=== PATIENT | male | born 1960 | race Caucasian/White ===

== ENCOUNTER 2018-10-03 23:45 | Emergency (ER) | payer OTHER ==
[~2018-10-03] VITALS: Ht 185.4 cm; Wt 90.7 kg
[~2018-10-03 23:45] MED LIST: BUDE10.22 INH; CYCL10 PO; FLUT110OIA INH; MIDO2.5 PO; Mucinex600 MG PO; NAPR500 PO; OXYACE5T PO; PRAZ2 PO; PREG200 PO; PREG300 PO; Prednisone20 MG PO; Ventolin/Prove6.7 GM INH; Zofran Odt8 MG SL
[2018-10-04 00:13] LABS: BASOPHILS ABSOLUTE AUTO 0.07 K/mm3 (0.00-0.23); BASOPHILS PERCENT AUTO 1 % (0-2); EOSINOPHILS ABSOLUTE AUTO 0.32 K/mm3 (0.00-0.68); EOSINOPHILS PERCENT AUTO 5 % (0-6); Hematocrit 41.3 % (37.0-53.0); Hemoglobin 13.4 g/dL (13.5-17.5); IMMATURE GRAN ABSOLUTE AUTO 0.01 K/mm3 (0.00-0.10); IMMATURE GRAN PERCENT AUTO 0 % (0-1); LYMPHOCYTES ABSOLUTE AUTO 2.07 K/mm3 (0.84-5.20); LYMPHOCYTES PERCENT AUTO 32 % (21-46); MONOCYTES ABSOLUTE AUTO 0.68 K/mm3 (0.16-1.47); MONOCYTES PERCENT AUTO 10 % (4-13); Mean Corpuscular HGB 30.3 pg (26.0-34.0); Mean Corpuscular HGB Conc 32.4 g/dL (31.5-36.5); Mean Corpuscular Volume 93 fL (80-100); Mean Platelet Volume 9.3 fL (9.1-12.4); NEUTROPHILS ABSOLUTE AUTO 3.41 K/mm3 (1.96-9.15); NEUTROPHILS PERCENT AUTO 52 % (41-73); Platelet Count 334 K/mm3 (150-400); RDW Coefficient Variation 14.3 % (11.7-14.2); RDW Standard Deviation 49.9 fL (35.1-46.3); Red Blood Cell Count 4.42 M/mm3 (4.30-5.90); White Blood Cell Count 6.56 K/mm3 (4.00-11.30)
[2018-10-04 00:36] LABS: International Normalized Ratio 1.05; Prothrombin Time Results 10.8 Sec (9.7-11.5)
[2018-10-04 00:41] LABS: Alanine Aminotransfer (ALT/SGP 50 U/L (12-78); Albumin, Blood 4.1 g/dL (3.4-5.0); Albumin/Globulin Ratio 1.2 (0.8-1.8); Alk Phos 94 U/L (50-136); Anion Gap 7 mmol/L (6-16); Aspartate Aminotrans (AST/SGOT 56 U/L (12-37); Bilirubin, Total 0.6 mg/dL (0.1-1.0); Blood Urea Nitrogen 19 mg/dL (8-24); Bun/Creatinine Ratio 19.3 (12.0-20.0); CO2, Blood 27 mmol/L (21-32); Calcium, Blood 8.5 mg/dL (8.5-10.1); Chloride, Blood 108 mmol/L (98-108); Creatinine, Blood 0.99 mg/dL (0.60-1.20); Ethanol (Alcohol), Blood, Med <3 mg/dL; Globulin, Blood 3.5 g/dL (2.2-4.0); Glomerular Filtration Rate >60 (60-); Glucose, Blood 101 mg/dL (70-99); Potassium, Blood 3.9 mmol/L (3.5-5.5); Sodium, Blood 142 mmol/L (136-145); Total Protein, Blood 7.6 g/dL (6.4-8.2)
[2018-10-04 02:11] LABS: U Amphetamine Screen DETECTED; U Methamphetamine Screen DETECTED
[2018-10-04 02:12] LABS: U Barbituate Screen Not Detected; U Benzodiazapine Screen Not Detected; U Buprenorphine Screen Not Detected; U Cannabinoids Screen DETECTED; U Cocaine Screen Not Detected; U Methadone Screen Not Detected; U Opiates Screen DETECTED; U Oxycodone Screen Not Detected; U Phencyclidine Screen Not Detected; U Propoxyphene Screen Not Detected
== END 2018-10-04 03:10 | disposition home or self-care (01) ==
LOC: ER 23:45
PROVIDERS: Emergency Medicine
DX: S50.812A Abrasion of left forearm, initial encounter (principal); M54.2 Cervicalgia; J44.9 Chronic obstructive pulmonary disease, unspecified; Z79.899 Other long term (current) drug therapy; Z96.652 Presence of left artificial knee joint; V89.2XXA Person injured in unspecified motor-vehicle accident, traffic, initial encounter
CPT/HCPCS: 70450; 71045; 71260; 72125; 72170; 74177; 80053; 83690; 85025; 85610; 85730; 86850; 86900; 86901; 96374; 96375; 96376; 99284-25; G0480; J1170; J2250; J2405; Q9967

== ENCOUNTER 2022-09-18 19:16 | Emergency (ER) | payer OTHER ==
[~2022-09-18] VITALS: Ht 182.9 cm; Wt 87.1 kg
[2022-09-18 21:47] LABS: BASOPHILS ABSOLUTE AUTO 0.03 K/mm3 (0.00-0.23); BASOPHILS PERCENT AUTO 1 % (0-2); EOSINOPHILS ABSOLUTE AUTO 0.12 K/mm3 (0.00-0.68); EOSINOPHILS PERCENT AUTO 2 % (0-6); Hematocrit 43.9 % (37.0-53.0); Hemoglobin 14.5 g/dL (13.5-17.5); IMMATURE GRAN ABSOLUTE AUTO 0.01 K/mm3 (0.00-0.10); IMMATURE GRAN PERCENT AUTO 0 % (0-1); LYMPHOCYTES ABSOLUTE AUTO 2.11 K/mm3 (0.84-5.20); LYMPHOCYTES PERCENT AUTO 41 % (21-46); MONOCYTES ABSOLUTE AUTO 0.34 K/mm3 (0.16-1.47); MONOCYTES PERCENT AUTO 7 % (4-13); Mean Corpuscular HGB 29.4 pg (26.0-34.0); Mean Corpuscular Volume 89 fL (80-100); Mean Platelet Volume 8.9 fL (9.1-12.4); NEUTROPHILS PERCENT AUTO 50 % (41-73); Platelet Count 403 K/mm3 (150-400); RDW Coefficient Variation 15.5 % (11.7-14.2); Red Blood Cell Count 4.93 M/mm3 (4.30-5.90); White Blood Cell Count 5.21 K/mm3 (4.00-11.30)
[2022-09-18 22:12] LABS: Albumin, Blood 3.9 g/dL (3.4-5.0); Albumin/Globulin Ratio 1.1 (0.8-1.8); Bilirubin, Total 0.2 mg/dL (0.1-1.0); Bun/Creatinine Ratio 12.7 (12.0-20.0); Calcium, Blood 8.3 mg/dL (8.5-10.1); Creatinine, Blood 0.86 mg/dL (0.60-1.20); Globulin, Blood 3.4 g/dL (2.2-4.0); Potassium, Blood 4.7 mmol/L (3.5-5.5); Thyroid Stimulating Hormone 0.408 uIU/mL (0.360-4.800); Total Protein, Blood 7.3 g/dL (6.4-8.2)
[2022-09-18] MEDS ORDERED: QUET25 PO (22:33)
== END 2022-09-18 23:06 | disposition home or self-care (01) ==
LOC: ER 19:16
PROVIDERS: Emergency Medicine
DX: F41.9 Anxiety disorder, unspecified (principal); G47.00 Insomnia, unspecified; J44.9 Chronic obstructive pulmonary disease, unspecified; F17.200 Nicotine dependence, unspecified, uncomplicated; Z79.899 Other long term (current) drug therapy
CPT/HCPCS: 36415; 80053; 84443; 85025; A9270

== ENCOUNTER 2024-12-22 08:01 | Emergency (ER) | payer OTHER ==
[~2024-12-22] VITALS: Ht 182.9 cm; Wt 86.6 kg
[~2024-12-22 08:01] MED LIST changes: +QUET25 PO
[2024-12-22] MEDS ORDERED: Ketorolac Tromethamine 15mg Vial IV ONE (09:20)
[2024-12-22] MEDS ORDERED: Diazepam 2 MG Tab PO ONE (09:20)
[2024-12-22] MEDS ORDERED: Lidocaine 4% 1 Patch TOP ONE (09:20)
[2024-12-22 11:00] VITALS: BP 153/84
[2024-12-22] MEDS ORDERED: KETO10 PO (12:11)
[2024-12-22] MEDS ORDERED: LIDOCAINE1 EAC1 TOP (12:11)
== END 2024-12-22 12:28 | disposition home or self-care (01) ==
LOC: ER 08:01
DX: M54.42 Lumbago with sciatica, left side (principal); J44.9 Chronic obstructive pulmonary disease, unspecified; Z87.891 Personal history of nicotine dependence; Z79.51 Long term (current) use of inhaled steroids; Z79.899 Other long term (current) drug therapy
CPT/HCPCS: 96374; 99283-25; A9270; J1885

== ENCOUNTER 2025-01-22 09:53 | Emergency (ER) | payer OTHER ==
[~2025-01-22] VITALS: Ht 182.9 cm; Wt 85.7 kg
[~2025-01-22 09:53] MED LIST changes: +KETO10 PO; +LIDOCAINE1 EAC1 TOP
[2025-01-22] MEDS ORDERED: HYDROmorphone HCl/Pf 1MG SYR IV ONE (10:20)
[2025-01-22] MEDS ORDERED: Ondansetron HCl 2 MG / ML 2ML Vial IV ONE (10:25)
[2025-01-22 10:48] LABS: BASOPHILS ABSOLUTE AUTO 0.09 K/mm3 (0.00-0.23); BASOPHILS PERCENT AUTO 1 % (0-2); EOSINOPHILS ABSOLUTE AUTO 0.35 K/mm3 (0.00-0.68); EOSINOPHILS PERCENT AUTO 5 % (0-6); Hemoglobin 12.8 g/dL (13.5-17.5); IMMATURE GRAN ABSOLUTE AUTO 0.02 K/mm3 (0.00-0.10); IMMATURE GRAN PERCENT AUTO 0 % (0-1); LYMPHOCYTES ABSOLUTE AUTO 1.12 K/mm3 (0.84-5.20); LYMPHOCYTES PERCENT AUTO 16 % (21-46); MONOCYTES ABSOLUTE AUTO 0.96 K/mm3 (0.16-1.47); MONOCYTES PERCENT AUTO 14 % (4-13); Mean Corpuscular HGB 26.4 pg (26.0-34.0); Mean Corpuscular HGB Conc 31.2 g/dL (31.5-36.5); Mean Corpuscular Volume 85 fL (80-100); Mean Platelet Volume 9.3 fL (9.1-12.4); NEUTROPHILS ABSOLUTE AUTO 4.33 K/mm3 (1.96-9.15); NEUTROPHILS PERCENT AUTO 63 % (41-73); Platelet Count 459 K/mm3 (150-400); RDW Coefficient Variation 16.2 % (11.7-14.2); RDW Standard Deviation 50.2 fL (35.1-46.3); Red Blood Cell Count 4.85 M/mm3 (4.30-5.90); White Blood Cell Count 6.87 K/mm3 (4.00-11.30)
[2025-01-22 11:18] LABS: Albumin, Blood 3.5 g/dL (3.4-5.0); Bilirubin, Total 0.3 mg/dL (0.1-1.0); Bun/Creatinine Ratio 10.5 (12.0-20.0); C-Reactive Protein, High Sens. 2.48 mg/L (0.000-3.000); Calcium, Blood 8.5 mg/dL (8.5-10.1); Creatinine, Blood 1.05 mg/dL (0.60-1.20); Globulin, Blood 3.4 g/dL (2.2-4.0); Potassium, Blood 4.7 mmol/L (3.5-5.5); Total Protein, Blood 6.9 g/dL (6.4-8.2)
[2025-01-22] MEDS ORDERED: DiphenhydrAMINE HCl 50 MG/ML 1ML Vial IV ONE (11:30)
[2025-01-22 11:37] VITALS: BP 169/88
== END 2025-01-22 12:32 ==
LOC: ER 09:53
PROVIDERS: Emergency Medicine
DX: M25.451 Effusion, right hip (principal); M25.551 Pain in right hip; G89.29 Other chronic pain; J44.9 Chronic obstructive pulmonary disease, unspecified; G62.9 Polyneuropathy, unspecified; Z87.891 Personal history of nicotine dependence; Z79.51 Long term (current) use of inhaled steroids; Z79.899 Other long term (current) drug therapy
CPT/HCPCS: 80053; 85025; 85651; 86141; 96374; 96375; 99283-25; J1171; J1200; J2405

== ENCOUNTER 2025-08-23 12:04 | Observation (INO) | payer OTHER ==
[~2025-08-23] VITALS: Ht 182.9 cm; Wt 94.8 kg
[2025-08-23] VITALS (11 sets, daily range): BP systolic 123–183; BP diastolic 74–98
[2025-08-23] MEDS ORDERED: Ondansetron HCl 2 MG / ML 2ML Vial IV ONE (12:50)
[2025-08-23] MEDS ORDERED: LORazepam 2 MG/ML 1ML Injection IV ONE (12:50)
[2025-08-23] MEDS ORDERED: HYDROmorphone HCl/Pf 1MG SYR IV ONE ×2 (12:50→13:50)
[2025-08-23 13:36] LABS: BASOPHILS ABSOLUTE AUTO 0.04 K/mm3 (0.00-0.23); BASOPHILS PERCENT AUTO 1 % (0-2); EOSINOPHILS ABSOLUTE AUTO 0.17 K/mm3 (0.00-0.68); EOSINOPHILS PERCENT AUTO 3 % (0-6); Hematocrit 36.6 % (37.0-53.0); Hemoglobin 11.1 g/dL (13.5-17.5); IMMATURE GRAN ABSOLUTE AUTO 0.01 K/mm3 (0.00-0.10); IMMATURE GRAN PERCENT AUTO 0 % (0-1); LYMPHOCYTES ABSOLUTE AUTO 0.98 K/mm3 (0.84-5.20); LYMPHOCYTES PERCENT AUTO 16 % (21-46); MONOCYTES ABSOLUTE AUTO 0.51 K/mm3 (0.16-1.47); MONOCYTES PERCENT AUTO 8 % (4-13); Mean Corpuscular HGB Conc 30.3 g/dL (31.5-36.5); Mean Corpuscular Volume 82 fL (80-100); NEUTROPHILS ABSOLUTE AUTO 4.41 K/mm3 (1.96-9.15); NEUTROPHILS PERCENT AUTO 72 % (41-73); NRBC ABSOLUTE 0.00 K/mm3 (0.00-0.02); NRBC Auto 0.0 /100 WBC (0.0-0.2); Platelet Count 333 K/mm3 (150-400); RDW Coefficient Variation 18.2 % (11.7-14.2); RDW Standard Deviation 53.4 fL (35.1-46.3)
[2025-08-23 14:26] LABS: Alanine Aminotransfer (ALT/SGP 46.0 U/L (12-78); Albumin, Blood 3.8 g/dL (3.4-5.0); Albumin/Globulin Ratio 1.2 (0.8-1.8); Anion Gap 10.0 mmol/L (3-11); Aspartate Aminotrans (AST/SGOT 95.0 U/L (12-37); Bilirubin, Total 0.4 mg/dL (0.1-1.0); Blood Urea Nitrogen 19.0 mg/dL (8-24); CO2, Blood 27.0 mmol/L (21-32); Calcium, Blood 9.3 mg/dL (8.5-10.1); Chloride, Blood 107.0 mmol/L (98-108); Creatinine, Blood 0.93 mg/dL (0.60-1.20); Globulin, Blood 3.3 g/dL (2.2-4.0); Glucose, Blood 107.0 mg/dL (70-99); Potassium, Blood 4.2 mmol/L (3.5-5.5); Sodium, Blood 140.0 mmol/L (136-145); Total Protein, Blood 7.1 g/dL (6.4-8.2)
[2025-08-23] MEDS ORDERED: Piperacillin/Tazobactam Sod 3.375 GM in NS 100 ML IV ONE (14:40)
[2025-08-23] MEDS ORDERED: NS 500 ML IV SCH (15:20)
[2025-08-23] MEDS ORDERED: FLU VACC TS2025-26(6MOS UP)/PF 45 MCG/0.5 ML SYRINGE IM ONE (16:10)
[2025-08-23] MEDS ORDERED: Bupivacaine 0.5% HCl 5 MG/ML 30MLVIAL ONE (16:58)
[2025-08-23] MEDS ORDERED: HYDROmorphone HCl/Pf 1MG SYR IV PRN (17:05)
[2025-08-23] MEDS ORDERED: Albuterol 2.5 MG/3 ML VIAL INH SCH (17:15)
[2025-08-23] MEDS ORDERED: Rocuronium Bromide 10 MG/ML 5ML Injection IV ONE ×2 (17:35→18:23)
[2025-08-23] MEDS ORDERED: Formoterol/Mometasone MDI 5/100 mcg 13 GM INH SCH (17:35)
[2025-08-23] MEDS ORDERED: Dexamethasone Sod Phos 10 MG/ML 1ML VIAL ONE (17:35)
[2025-08-23] MEDS ORDERED: FentaNYL Citrate 50 MCG/ML 2 ML Injection ONE (17:42)
[2025-08-23] MEDS ORDERED: Midazolam HCl 1MG / ML 2ML Vial ONE (17:42)
--- NOTE | 2025-08-23 17:54 | NUR ---
PRE PROCEDURE NOTE PT TO PACU FROM ER FOR SURGERY. PT A&OX4, BREATING 2LO2 (BASELINE), ANXIOUS AND COOPERATIVE. PAS IN PLACE. ABDOMEN SHAVED AND WIPED . VSS. PT READY FOR SURGERY. Patient confirms NPO status and agrees with scheduled surgery. AMBULATORY AT BASELINE. Pre-Op teaching done. Pt verbalizes understanding.
[2025-08-23] MEDS ORDERED: Sugammadex Sodium 200 MG/2ML SDV (100 MG/ML) ONE (18:21)
--- NOTE | 2025-08-23 18:31 | NUR ---
08/23/25 1831 Elizabeth Powell NO PREOP ANTIBIOTICS ORDERED PER .
[2025-08-23] MEDS ORDERED: Ondansetron HCl 2 MG / ML 2ML Vial ONE (18:44)
[2025-08-23] MEDS ORDERED: OxyCODONE 10/Acetamin 325 TABLET PO PRN (19:10)
[2025-08-23] MEDS ORDERED: Ketorolac Tromethamine 30mg Vial IV PRN (19:15)
--- NOTE | 2025-08-23 20:25 | NUR ---
ADMISSION PT ARRIVED VIA GURNEY FROM PACU. ORIENTED TO ROOM. PT ARRIVES ON ROOM AIR WITH BELONGINGS. PT (DIONISIO) CANNOT DRIVE AT NIGHT; PT MUST DISCHARGE DURING DAYTIME HOURS.
[2025-08-23] MEDS ORDERED: Methocarbamol750 MG PO (20:38)
[2025-08-23] MEDS ORDERED: OXYC5 (20:39)
[2025-08-23] MEDS ORDERED: Piperacillin/Tazobactam Sod 3.375 GM in NS 100 ML IV SCH (21:00)
[2025-08-23] MEDS ORDERED: NS 250 ML IV PRN (21:20)
[2025-08-24 00:50] VITALS: BP 122/75
[2025-08-24 04:14] VITALS: BP 122/65
--- NOTE | 2025-08-24 04:42 | NUR ---
SHIFT SUMMARY NO ACUTE EVENTS OVERNIGHT. PT ON ROOM AIR. PT IS IMPULSIVE AND IS STEADY ON FEET BUT DOES APPEAR TO FORGET LINES ATTACHED. BED ALARM ON FOR SAFETY. PT ANTICIPATES DISCHARGE TODAY.
[2025-08-24 06:07] LABS: BASOPHILS ABSOLUTE AUTO 0.01 K/mm3 (0.00-0.23); BASOPHILS PERCENT AUTO 0 % (0-2); EOSINOPHILS ABSOLUTE AUTO 0.00 K/mm3 (0.00-0.68); EOSINOPHILS PERCENT AUTO 0 % (0-6); Hematocrit 31.6 % (37.0-53.0); Hemoglobin 9.4 g/dL (13.5-17.5); IMMATURE GRAN ABSOLUTE AUTO 0.03 K/mm3 (0.00-0.10); IMMATURE GRAN PERCENT AUTO 0 % (0-1); LYMPHOCYTES ABSOLUTE AUTO 0.42 K/mm3 (0.84-5.20); LYMPHOCYTES PERCENT AUTO 6 % (21-46); MONOCYTES ABSOLUTE AUTO 0.26 K/mm3 (0.16-1.47); MONOCYTES PERCENT AUTO 4 % (4-13); Mean Corpuscular HGB Conc 29.7 g/dL (31.5-36.5); Mean Corpuscular Volume 83 fL (80-100); NEUTROPHILS ABSOLUTE AUTO 6.05 K/mm3 (1.96-9.15); NEUTROPHILS PERCENT AUTO 90 % (41-73); NRBC ABSOLUTE 0.00 K/mm3 (0.00-0.02); NRBC Auto 0.0 /100 WBC (0.0-0.2); Platelet Count 267 K/mm3 (150-400); RDW Coefficient Variation 18.0 % (11.7-14.2); RDW Standard Deviation 54.2 fL (35.1-46.3)
[2025-08-24 06:26] VITALS: BP 133/80
[2025-08-24 06:44] LABS: Alanine Aminotransfer (ALT/SGP 53.0 U/L (12-78); Albumin, Blood 3.4 g/dL (3.4-5.0); Albumin/Globulin Ratio 1.1 (0.8-1.8); Anion Gap 10.0 mmol/L (3-11); Aspartate Aminotrans (AST/SGOT 82.0 U/L (12-37); Bilirubin, Total 0.3 mg/dL (0.1-1.0); Blood Urea Nitrogen 13.0 mg/dL (8-24); CO2, Blood 27.0 mmol/L (21-32); Calcium, Blood 8.5 mg/dL (8.5-10.1); Chloride, Blood 104.0 mmol/L (98-108); Creatinine, Blood 1.19 mg/dL (0.60-1.20); Globulin, Blood 3.2 g/dL (2.2-4.0); Glucose, Blood 169.0 mg/dL (70-99); Potassium, Blood 4.8 mmol/L (3.5-5.5); Sodium, Blood 136.0 mmol/L (136-145); Total Protein, Blood 6.6 g/dL (6.4-8.2)
[2025-08-24 07:00] VITALS: BP 124/72
[2025-08-24] MEDS ORDERED: FLU VACC TS2025-26(6MOS UP)/PF 45 MCG/0.5 ML SYRINGE IM SCH (09:00)
--- NOTE | 2025-08-24 11:49 | NUR ---
DR CALLES IN TO SEE PT.
[2025-08-24] MEDS ORDERED: Enoxaparin 40 MG/0.4 ML SYR SC ONE (12:00)
[2025-08-24 12:28] LABS: Hematocrit 33.1 % (37.0-53.0); Hemoglobin 9.8 g/dL (13.5-17.5)
--- NOTE | 2025-08-24 13:14 | NUR ---
pt passed flatus
[2025-08-24] MEDS ORDERED: ALBU90OI INH (14:03)
[2025-08-24] MEDS ORDERED: Percocet 5-3251 EACH PO (14:06)
--- NOTE | 2025-08-24 14:11 | NUR ---
[facility] IN ROOM W/PT.
--- NOTE | 2025-08-24 14:22 | NUR ---
DISCHARGING PT PASSED FLATUS. SPOUSE PICKING UP PAIN PRESCRIPTION. REVIEWED DC INSTRUCTIONS W/PT; VERBALIZED UNDERSTANDING. SIGNED DC PAPERWORK. AWAITING SPOUSE'S RETURN FOR RIDE HOME.
[2025-08-24 14:30] VITALS: BP 122/69
--- NOTE | 2025-08-24 15:02 | NUR ---
discharged pt left unit in [place] w/possessions and dc paperwork in hand, met ride outside.
== END 2025-08-24 15:00 | disposition home or self-care (01) ==
LOC: ER 12:04 → SURS 12:05
PROVIDERS: Student in an Organized Health Care Education/Training Program; Surgery; ADMIT Hospitalist
PROC: 0FT44ZZ Resection of Gallbladder, Percutaneous Endoscopic Approach (ICD-10-PCS; principal; 2025-08-23 17:45)
DX: K80.12 Calculus of gallbladder with acute and chronic cholecystitis without obstruction (principal); K31.A21 Gastric intestinal metaplasia with low grade dysplasia; J44.9 Chronic obstructive pulmonary disease, unspecified; R03.0 Elevated blood-pressure reading, without diagnosis of hypertension; G71.19 Other specified myotonic disorders; M19.90 Unspecified osteoarthritis, unspecified site; Z79.899 Other long term (current) drug therapy; Z87.891 Personal history of nicotine dependence
CPT/HCPCS: 36415; 71046; 74177; 76705; 80053; 83690; 83735; 84484; 85014; 85018; 85025; 85379; 88304; 93005; 93010; 96365-59; 96366; 96372; 96375; 96376; 99285-25; A9270; G0378; J1100; J1171; J1650; J1885; J2060; J2250; J2405; J2543; J2704; J3010; J7030; J7050; Q9967

== ENCOUNTER 2025-08-26 16:23 | Emergency (ER) | payer OTHER ==
[~2025-08-26] VITALS: Ht 182.9 cm; Wt 90.7 kg
[~2025-08-26 16:23] MED LIST changes: +ALBU90OI INH; +Methocarbamol750 MG PO; +OXYC5; +Percocet 5-3251 EACH PO
[2025-08-26] MEDS ORDERED: Ondansetron HCl 2 MG / ML 2ML Vial IV ONE (16:40)
[2025-08-26] MEDS ORDERED: HYDROmorphone HCl/Pf 1MG SYR IV ONE ×2 (16:40→17:10)
[2025-08-26 16:50] LABS: BASOPHILS ABSOLUTE AUTO 0.06 K/mm3 (0.00-0.23); BASOPHILS PERCENT AUTO 1 % (0-2); EOSINOPHILS ABSOLUTE AUTO 0.41 K/mm3 (0.00-0.68); EOSINOPHILS PERCENT AUTO 5 % (0-6); Hematocrit 36.2 % (37.0-53.0); Hemoglobin 10.6 g/dL (13.5-17.5); IMMATURE GRAN ABSOLUTE AUTO 0.01 K/mm3 (0.00-0.10); IMMATURE GRAN PERCENT AUTO 0 % (0-1); LYMPHOCYTES ABSOLUTE AUTO 2.77 K/mm3 (0.84-5.20); LYMPHOCYTES PERCENT AUTO 35 % (21-46); MONOCYTES ABSOLUTE AUTO 0.74 K/mm3 (0.16-1.47); MONOCYTES PERCENT AUTO 9 % (4-13); Mean Corpuscular HGB Conc 29.3 g/dL (31.5-36.5); Mean Corpuscular Volume 84 fL (80-100); NEUTROPHILS ABSOLUTE AUTO 3.95 K/mm3 (1.96-9.15); NEUTROPHILS PERCENT AUTO 50 % (41-73); NRBC ABSOLUTE 0.00 K/mm3 (0.00-0.02); NRBC Auto 0.0 /100 WBC (0.0-0.2); Platelet Count 367 K/mm3 (150-400); RDW Coefficient Variation 18.2 % (11.7-14.2); RDW Standard Deviation 55.3 fL (35.1-46.3)
[2025-08-26 17:15] LABS: Source, Urine Clean Catch
[2025-08-26 17:18] LABS: Alanine Aminotransfer (ALT/SGP 88.0 U/L (12-78); Albumin, Blood 3.9 g/dL (3.4-5.0); Albumin/Globulin Ratio 1.0 (0.8-1.8); Anion Gap 6.0 mmol/L (3-11); Aspartate Aminotrans (AST/SGOT 77.0 U/L (12-37); Bilirubin, Total 0.3 mg/dL (0.1-1.0); Blood Urea Nitrogen 11.0 mg/dL (8-24); CO2, Blood 34.0 mmol/L (21-32); Calcium, Blood 9.0 mg/dL (8.5-10.1); Chloride, Blood 103.0 mmol/L (98-108); Creatinine, Blood 0.98 mg/dL (0.60-1.20); Globulin, Blood 3.9 g/dL (2.2-4.0); Glucose, Blood 106.0 mg/dL (70-99); Potassium, Blood 5.2 mmol/L (3.5-5.5); Sodium, Blood 138.0 mmol/L (136-145); Total Protein, Blood 7.8 g/dL (6.4-8.2)
[2025-08-26 17:22] LABS: Bilirubin, Urine Neg (Neg); Color, Urine Yellow (P-Yellow); Glucose Qualitative, Urine Neg (Neg); Ketones, Urine Neg (Neg); Leukocyte Esterase, Urine 1+ (Neg); Protein, Urine 2+ (Neg); Specific Gravity, Urine 1.015 (1.003-1.022); Urobilinogen, Urine NORM (Normal)
[2025-08-26 17:29] LABS: Red Blood Cells, Urine 0-2 /hpf (0-2)
[2025-08-26] MEDS ORDERED: ONDA4ODT MM (18:40)
[2025-08-26] MEDS ORDERED: RX Prepack 2 Tabs Ondansetron ODT 4MG UD ONE (18:40)
[2025-08-26] MEDS ORDERED: RX Prepack 6 Tabs Oxycodone 5mg UD ONE (18:40)
[2025-08-26] MEDS ORDERED: RX Prepack 2 Sprays Naloxone HCL 4 MG/SPRAY UD ONE (18:40)
[2025-08-26] MEDS ORDERED: CEPH500 PO (18:45)
[2025-08-26 19:15] VITALS: BP 198/98
== END 2025-08-26 21:02 | disposition home or self-care (01) ==
LOC: ER 16:23
PROVIDERS: Student in an Organized Health Care Education/Training Program
DX: R10.11 Right upper quadrant pain (principal); N30.00 Acute cystitis without hematuria; N20.0 Calculus of kidney; J44.9 Chronic obstructive pulmonary disease, unspecified; Z90.49 Acquired absence of other specified parts of digestive tract; Z79.899 Other long term (current) drug therapy; Z99.81 Dependence on supplemental oxygen; Z87.891 Personal history of nicotine dependence
CPT/HCPCS: 74177; 80053; 81001; 83605; 83690; 85025; 87086; 93005; 93010; 96374; 96375; 99284-25; A9270; J1171; J2405; J7120; Q9967